=== PATIENT | male | born 1965 | race Caucasian/White ===

== ENCOUNTER 2017-08-01 11:21 | Inpatient (IN) | payer BC, OTHER ==
[2017-08-01] MEDS ORDERED: MIDAZOLAM 1 MG/ML 2 ML INJ (12:36)
[2017-08-01] MEDS ORDERED: FENTAnyl 50 MCG/ML VIAL (12:36)
[2017-08-01] MEDS ORDERED: IODIXANOL LOCM 100 ML BTL ×3 (12:37→15:42)
[2017-08-01] MEDS ORDERED: LIDOCAINE 1% (MDV) 20 ML INJ (12:37)
[2017-08-01] MEDS ORDERED: HEPARIN 1000 UNITS/ML 10 ML INJ (12:37)
[2017-08-01] MEDS ORDERED: NITROGLYCERIN (IC) 100 MCG/ML INJ (12:37)
[2017-08-01] MEDS ORDERED: VERAPAMIL 5 MG INJ (12:37)
[2017-08-01] MEDS ORDERED: IODIXANOL LOCM 50 ML BTL (12:37)
[2017-08-01] MEDS ORDERED: BIVALIRUDIN 250MG /NS 50 ML 50 ML IVPB ×2 (13:13→15:41)
[2017-08-01] MEDS ORDERED: TICAGRELOR 90 MG TABLET (13:13)
[2017-08-01] MEDS ORDERED: ASPIRIN 325 MG TAB (13:14)
[2017-08-01] MEDS ORDERED: IOHEXOL 350MG/ML 50 ML BTL (13:32)
[2017-08-01] MEDS ORDERED: hydrALAzine 20 MG INJ IV (15:00)
[2017-08-01] MEDS ORDERED: morphine 2 MG INJ IV (15:00)
[2017-08-01] MEDS: SOD CHLORIDE 0.9% 1,000 ML IV (15:33)
[2017-08-01] MEDS: METOPROLOL (XL) 25 MG TAB PO (16:02)
[2017-08-01] MEDS: LORAZEPAM 1 MG TAB PO ×2 (16:02→23:13)
[2017-08-01] MEDS ORDERED: GLUCOSE GEL 15 GRAM TUBE BUCCAL (16:30)
[2017-08-01] MEDS ORDERED: GLUCOSE GEL 15 GRAM TUBE PO ×2 (16:30)
[2017-08-01] MEDS ORDERED: DEXTROSE 50% 50 ML SYRINGE IV ×2 (16:30)
[2017-08-01] MEDS ORDERED: GLUCAGON 1 MG INJ IM (16:30)
[2017-08-01] MEDS: INSULIN ASPART [NOVOLOG] 3 ML PEN SC ×2 (17:35→20:58)
[2017-08-01] MEDS: TICAGRELOR 90 MG TABLET PO (20:49)
[2017-08-01] MEDS: ATORVASTATIN 80 MG TAB PO (20:50)
[2017-08-01] MEDS: traZODone 50 MG TAB PO (23:13)
[2017-08-02] MEDS: ACCU-CHEK XX (02:00)
[2017-08-02 05:18] LABS: ADD MAN DIFF? NO
[2017-08-02 05:22] LABS: WHITE BLOOD COUNT 6.8 10^3/ul (4.8-10.8)
[2017-08-02 05:22] LABS: ABNORMAL IP MESSAGE 1; BASOPHILS % 0.3 % (0.0-2.0); EOSINOPHILS # 0.1 10^3/ul (0.0-0.5); EOSINOPHILS % 0.9 % (0.0-7.0); HEMATOCRIT 38.9 % (42.0-52.0); HEMOGLOBIN 13.7 g/dl (14.0-18.0); LYMPHOCYTES # 0.9 10^3/ul (0.8-2.9); LYMPHOCYTES % 13.7 % (15.0-51.0); MEAN CORPUSCULAR HEMOGLOBIN 31.1 pg (29.0-33.0); MEAN CORPUSCULAR HGB CONC 35.2 g/dl (32.0-37.0); MEAN CORPUSCULAR VOLUME 88.4 fl (82.0-101.0); MEAN PLATELET VOLUME 13.9 fl (7.4-10.4); MONOCYTE # 0.9 10^3/ul (0.3-0.9); MONOCYTES % 13.3 % (0.0-11.0); NEUTROPHIL # 4.9 10^3/ul (1.6-7.5); NEUTROPHILS % 71.4 % (39.0-77.0); PLATELET COUNT 101 10^3/UL (140-415); POSITIVE DIFF @See below; RED CELL DISTRIBUTION WIDTH 12.6 % (11.5-14.5)
[2017-08-02 05:43] LABS: ANION GAP 12 (8-16); BLOOD UREA NITROGEN 11 mg/dl (7-20); CALCIUM 8.8 mg/dl (8.4-10.2); CARBON DIOXIDE 27 mmol/L (21-31); CHLORIDE 108 mmol/L (97-110); CREATININE 0.84 mg/dl (0.61-1.24); GLUCOSE 123 mg/dl (70-220); MAGNESIUM 1.9 mg/dl (1.7-2.5); PHOSPHORUS 3.3 mg/dl (2.5-4.9); POTASSIUM 3.6 mmol/L (3.5-5.1); SODIUM 143 mmol/L (135-144)
[2017-08-02] MEDS: INSULIN ASPART [NOVOLOG] 3 ML PEN SC (08:07)
[2017-08-02] MEDS: ASPIRIN 81 MG TAB PO (08:46)
[2017-08-02] MEDS: LISINOPRIL 5 MG TAB PO (08:46)
[2017-08-02] MEDS: METOPROLOL (XL) 25 MG TAB PO (08:47)
[2017-08-02] MEDS: TICAGRELOR 90 MG TABLET PO (08:54)
== END 2017-08-02 11:05 | disposition home or self-care (01) | DRG 247 ==
LOC: SDS 11:21 → REC 14:57 → ICU 16:35
PROVIDERS: Internal Medicine Interventional Cardiology
PROC: 027035Z Dilation of Coronary Artery, One Artery with Two Drug-eluting Intraluminal Devices, Percutaneous Approach (ICD-10-PCS; principal; 2017-08-01 12:22)
PROC: 4A023N7 Measurement of Cardiac Sampling and Pressure, Left Heart, Percutaneous Approach (ICD-10-PCS; 2017-08-01 12:22)
PROC: B211YZZ Fluoroscopy of Multiple Coronary Arteries using Other Contrast (ICD-10-PCS; 2017-08-01 12:22)
PROC: 3E033PZ Introduction of Platelet Inhibitor into Peripheral Vein, Percutaneous Approach (ICD-10-PCS; 2017-08-01 12:22)
DX: I21.4 Non-ST elevation (NSTEMI) myocardial infarction (principal); I10 Essential (primary) hypertension; F17.290 Nicotine dependence, other tobacco product, uncomplicated; I25.10 Atherosclerotic heart disease of native coronary artery without angina pectoris; E11.9 Type 2 diabetes mellitus without complications; E78.5 Hyperlipidemia, unspecified; F41.9 Anxiety disorder, unspecified; F32.9 Major depressive disorder, single episode, unspecified; Z79.82 Long term (current) use of aspirin; Z79.01 Long term (current) use of anticoagulants; Z79.84 Long term (current) use of oral hypoglycemic drugs; Z79.02 Long term (current) use of antithrombotics/antiplatelets; Z79.4 Long term (current) use of insulin
CPT/HCPCS: 80048; 82962; 83735; 84100; 85025; 87081; 93458